=== PATIENT | male | born 1970 | race Asian ===

== ENCOUNTER 2018-03-22 05:38 | Day surgery (SDC) | payer SELFPAY ==
[~2018-03-22] VITALS: Ht 168.9 cm; Wt 76.4 kg
[~2018-03-22 05:38] MED LIST: NORCO 325 MG-51 TAB PO
[2018-03-22 06:09] VITALS: BP 112/63; PULSE 81; TEMP 98.6
[2018-03-22] MEDS ORDERED: TYLENOL 500MG500 MG PO (06:15)
[2018-03-22] MEDS ORDERED: ULTRAM 50MG TAB50 MG PO (06:17)
--- NOTE | 2018-03-22 06:17 | NUR ---
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
--- NOTE | 2018-03-22 07:00 | NUR ---
PATIENT ARRIVED THIS AM AND STATED HE ATE CHIPS AND DRANK A COLA AT 0430 THIS MORNING. I INFORMED DR GRACIA AND HE DISCUSSED DELAY TO MICHAEL GRACIA TALKED TO PATIENT ABOUT RISK AND TO DELAY SURGERY OR RESCHEDULED. PATIENT TO RETURN AT 1030. INT DC'D PER ORDER FROM DR GRACIA AND RESTART WHEN PATIENT RETURNS.
[2018-03-22 13:00] VITALS: BP 122/90; PULSE 71; TEMP 98.4
--- NOTE | 2018-03-22 13:00 | NUR ---
TO RM 8 PER CART FROM [facility] ALERT ORIENTED X3, TALKING TO STAFF. PATIENT C/O HE WAS SLEEPING DURING THE PROCEDURE,HE WASN'T THAT ASLEEP LAST TIME. PATIENT THEN C/O BEING AWAKE WHILE THEY WHERE STICHING HIM UP.CARLOS WRAP FROM HAND TO MID FOREARM CLEAN DRY INTACT. DRESSINGS CLEAN DRY INTACT. PATIENT C/O LEFT WRIST PAIN 10/10, NO GRIMACE NOTED. PATIENT ASKINF FOR HIS PHONE TO CALL HIS .
[2018-03-22 13:15] VITALS: BP 130/102; PULSE 77
--- NOTE | 2018-03-22 13:25 | NUR ---
ELEVATED LEFT ARM ON PILLOW AND ICE APPLIED RECEIVED NORCO7.5 1 TAB. RECEIVED CRANBERRY JUICE AND APPLE JUICE. PATIENT CURRENTLY TALKING ON CELL PHONE.
[2018-03-22 13:30] VITALS: BP 145/81; PULSE 64
[2018-03-22] MEDS ORDERED: NORCO 325 MG-51 TAB PO (13:30)
--- NOTE | 2018-03-22 13:30 | NUR ---
PATIENT TALKING ON PHONE. ARM ON PILLOW AND ICED. PATIENT ASKING WHEN HE CAN GET OUT OF HERE. I EXPLAINED HE COULD GO HOME.
--- NOTE | 2018-03-22 13:45 | NUR ---
DISCONTINUED IV AND INT- CATHETER INTACT. OFFERED PATIENT HELP GETTING DRESSED. HE DECLINED AND THANKED ME FOR ASKING. PATIENT UP AMBULATED TO BATHROOM.
--- NOTE | 2018-03-22 13:55 | NUR ---
RECEIVED DISCHARGE INSTRUCTIONS AND VERBALIZED UNDERSTANDING.
--- NOTE | 2018-03-22 14:00 | NUR ---
UPON DISCHARGE PATIENT AGAIN VERBALIZED HE WAS PISSED HE WAS PUT TO SLEEP FOR THE PROCEDURE. PATIENT STATED DON'T YOU REMEMBER ME TELLING YOU I DIDN'T WANT TO BE ASLEEP. I TOLD HIM "NO, I DID NOT HERE HIM TELL ME HE DIDN'T WANT TO BE SEDATED" I EXPLAINED IF HE DIDN'T WANT SEDATED IT WAS UP TO DR GRACIA AND ANESTHESIA. HE BECAME MORE UPSET AND STATED I WAS TRYING TO COVER UP FOR MYSELF AND ANESTHESIA. HE ASK IF ANYONE ELSE WAKES UP ANGRY. I TOLD HIM SOMETIMES THEY WAKE UP MAD AND HALLUCINATING FROM ANESTHESIA. HE THEN STATED " YOU ARE PISSING ME OFF AND I HAVE YOU RECORDED" PATIENT DISCHARGED PER BY NURSING STAFF TO PRIVATE CAR IN CARE OF -[facility].
--- NOTE | 2018-03-22 14:16 | NUR ---
THIS INFORMATION WAS BROUGHT TO MY COORDINATOR AND ANESTHESIA WAS INFORMED OF PATIENT BEING UPSET.
== END 2018-03-22 14:10 | disposition home or self-care (01) ==
LOC: SDCO 05:38
DX: G56.02 Carpal tunnel syndrome, left upper limb (principal); J45.909 Unspecified asthma, uncomplicated; F17.210 Nicotine dependence, cigarettes, uncomplicated; G89.29 Other chronic pain; M54.2 Cervicalgia
CPT/HCPCS: J0690; J2704; J3010; J7120